=== PATIENT | male | born 1945 | race Caucasian/White ===

== ENCOUNTER 2018-10-10 15:30 | Inpatient (IN) | payer OTHER ==
[~2018-10-10] VITALS: Ht 172.7 cm; Wt 89.7 kg
[2018-10-10 16:24] LABS: HEMATOCRIT 38.3 % (42.0-52.0); HEMOGLOBIN 13.2 gm/dL (14.0-18.0); MCH 33.7 pg (26.0-34.0); MCHC 34.4 g/dL (28.0-37.0); RBC 3.91 mil/uL (4.50-6.00); RDW 14.4 % (10.5-14.5); WBC 8.1 thou/uL (4.0-11.0)
[2018-10-10 16:38] LABS: PROTIME 10.2 Seconds (9.3-11.4)
[2018-10-10 16:43] LABS: ALBUMIN 3.6 g/dL (3.4-5.0); CALCIUM 9.5 mg/dL (8.5-10.1); CREATININE 1.1 mg/dL (0.7-1.3); POTASSIUM 4.6 mmol/L (3.5-5.1); TOTAL BILIRUBIN 0.3 mg/dL (<0.1-1.0); TOTAL PROTEIN 7.7 g/dL (6.4-8.2)
[2018-10-10 16:45] LABS: TROPONIN-I 0.8 ng/mL (<0.06)
[2018-10-10] MEDS ORDERED: METFORMIN HCL500 MG PO (17:24)
[2018-10-10] MEDS ORDERED: COREG6.25 MG PO (17:25)
[2018-10-10] MEDS ORDERED: MAXZIDE-25 MG1 EACH PO (17:26)
[2018-10-10] MEDS ORDERED: ASPIRIN325 PO (17:26)
[2018-10-10] MEDS ORDERED: SIMVASTATIN40 MG PO (17:27)
[2018-10-10] MEDS ORDERED: AVODART0.5 MG PO (17:27)
[2018-10-10] MEDS ORDERED: NITROGLYCERIN0.4 MG SUBLING (17:28)
--- NOTE | 2018-10-10 18:40 | NUR ---
PT A DIRECT ADMIT FROM DR. CHAPIN. ADMISSION HX AND ASSESSMENT COMPLETED. PT ALERT AND ORIENTED. REPORT HAVING SOME CHEST DISCOMFORT. MIHAI ALEXANDER SLICING MACHINE TENDER AWARE. CRITICAL LAB CALLED IN TO MI[facility]. ORDERS RECEIVED. STARTED ON HEPARIN DRIP. WILL CONTINUE TO MONITOR.
[2018-10-10 20:25] VITALS: BP 157/63
[2018-10-11 00:15] VITALS: BP 141/59
[2018-10-11 03:46] VITALS: BP 161/76
--- NOTE | 2018-10-11 05:42 | NUR ---
ASSUMED PT CARE AT 1900. VSS. PT A&0X4. ON HEPARIN DRIP (CHECK HEPARIN FLOWSHEET). PT APTT WAS 62.2 WHEN CHECKED AT 0000 SO NO CHANGE TO CURRENT RATE. PT OCASSIONALLY GOT BRADYCARDIC IN THE HIGHTER 40s ON THE MONITOR DURING THE NIGHT AND ASSYMPTOMATIC. DENIED CHEST PAIN FOR ME DURING THIS SHIFT. PT IS STABLE, HAS BEEN NPO SINCE OOOO IN PREP FOR HEART CATH TODAY. CONSENT NOT SIGED YET; NO ORDERS. PT HAD A GOOD NIGHT, WILL CONTINUE TO MONITOR PER POC.
[2018-10-11 07:05] VITALS: BP 158/68
[2018-10-11 07:16] LABS: CHOLESTEROL 117 mg/dL (<200); HDL CHOLESTEROL 45 mg/dL (>40); LDL CHOLESTEROL 56 mg/dL (<100); TC:HDL 2.6 Ratio (Not establshd); TRIGLYCERIDE 81 mg/dL (<150); VLDL 16 mg/dL (<40)
[2018-10-11 07:25] LABS: TROPONIN-I 1.09 ng/mL (<0.06)
--- NOTE | 2018-10-11 08:32 | EKG ---
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 : 1945 Requested By: Day Gleason Order Number: [id number] MD: Almas Askew Measurements Intervals [place] Rate: 53 P: 24 [place]: 154 QRS: -1 QRSD: 106 T: 34 QT: 449 QTc: 422 Interpretive Statements Sinus bradycardia Otherwise no significant abnormality No previous ECG available for comparison Electronically Signed On 10-11-2018 8:32:19 CDT by Almas Askew [email or web address] ��������������������������������������������� <ELECTRONICALLY SIGNED> ���������������������������������������� By: Almas Askew MD, [facility] ��������������������������������������������� 10/11/18 0832 [id number] Almas Askew MD, FACC /EPI
[2018-10-11] MEDS ORDERED: FIRMAGON80 MG SUBQ (10:53)
--- NOTE | 2018-10-11 13:19 | CATHLAB ---
[address] [place] [address] [facility] [place] [address] INVASIVE PROCEDURE REPORT Name: ALAN AGEE Room #: 210-P 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 A PINNACLE 4FR Sheath #[id number] sheath was inserted into the . Coronary angiography was performed using coronary diagnostic catheters. The right coronary system was accessed and visualized with a JR4 catheter. The left coronary system was accessed and visualized with a JL4 catheter. The left ventricle was accessed and visualized with a angled pigtail catheter. Left ventricular/Aortic Valve gradient assessed via catheter pullback. An aortogram of the ascending aorta was performed. Hemostasis was obtained with manual pressure following sheath removal without any complications. There was no hematoma. Intraoperative Conscious Sedation Sedation start time: 08:16 Case end Time: 9:16 Fentanyl 50 mcg Versed 1 mg Fluoro Time: 19.49 minutes Dose: DAP 72618.00 cGycm2 1592 mGy [facility] [email or web address] [address] INVASIVE PROCEDURE REPORT Name: ANUEL,ALAN Cate Room #: 210-P [facility]#: [id number] ������������� Admission: 10/10/18 ������������� Attend Phys: Jigar Corea MD Discharge: ��� ������������� ��� Date of : 45 Date of Service: 10/11/18 1319 �� Report #: [id number] �������� ��������������������������������������������[id number] Contrast Type and Amount: Omnipaque 240 ml Coronary Angiography The patient's coronary anatomy is left dominant. Diagnostic Cath Left Main There is a severe occlusion in the left main, extending into the left circumflex artery, 95%. LAD There is a subtotal occlusion at the ostium. There is a patent LEE graft with an end-to-side anastomosis to the mid LAD. After the anastomosis, there is both antegrade and retrograde flow filling of the LAD, back to the proximal segment. Diagonal 1 Filled via retrograde flow from the LEE graft to the LAD. Circumflex This is a dominant vessel supplying a left PDA. There is a severe occlusion in the midsegment of the left circumflex artery, 90%. OM1 Occluded at the ostium. There is a patent sequential SVG with a uprj-fk-stmf anastomosis to OM1 and an end-to-side anastomosis to OM 2. OM2 Occluded at the ostium. There is a patent sequential SVG with a yppb-do-dwsr anastomosis to OM1 and an end-to-side anastomosis to OM 2. L HERNAN This is a patent vessel, with a mild stenosis proximally, 30%. Right Coronary This is a small, nondominant vessel, with a total occlusion proximally. Left Ventriculography Left Ventriculography was not performed. An LVEDP was measured and there is no gradient across the outflow tract. An aortogram was performed to assess for grafts. Hemodynamics The aortic pressure is 177/81 mmHg with a mean of 118 mmHg. The left ventricular pressure is 182/11 mmHg with a mean of mmHg. The left ventricular end diastolic pressure is 36 mmHg. PCI Technique Lesion Percutaneous coronary intervention was performed on the LM. The lesion stenosis prior to intervention was 95% with MICKEY 3 flow. A VISTA 6FR XB 3.5 #[id number] Guide Catheter was used to engage the ostium. A Luge Wire .014 x 182CM #[id number] Interventional Guidewire was used to cross the lesion. BALLOON DILATION [facility] [address] [place] [address] INVASIVE PROCEDURE REPORT Name: ALAN AGEE Room #: 210-P [facility].#: [id number] ������������� Admission: 10/10/18 ������������� Attend Phys: Jigar Corea MD Discharge: ��� ������������� ��� Date of : 45 Date of Service: 10/11/18 1319 �� Report #: [id number] �������� ��������������������������������������������[id number] A Balloon catheter TREK RX 2.5 X 12 #[id number] was inserted and inflated up to 18.00atm for 19seconds. Additional Inflation: 12.00atm for 20seconds. Additional Inflation: 14.00atm for 14seconds. STENT DEPLOYMENT A drug-eluting stent XIENCE CYNDY RX 2.75 X 18 #[id number] was inserted and inflated up to 12.00atm for 9seconds. A second Xience Cyndy deployed to LEFT MAIN @ 14ATM for 22SEC Additional inflation @ 18AATM for 13SEC POST STENT DEPLOYMENT BALLOON DILATION A Balloon catheter TREK NC RX 3.0 X 15 #[id number] was inserted and inflated up to 14.00atm for 16seconds. Additional Inflation: 14.00atm for 20seconds. Additional Inflation: 20.00atm for 25seconds. Final angiography reveals 5 % stenosis with MICKEY 3 flow. PCI Technique Lesion 2 Percutaneous coronary intervention was performed on the mid circumflex artery segment. The lesion stenosis prior to intervention was 90% with MICKEY flow. Balloon Dilation A Balloon catheter TREK RX 2.5 X 12 #[id number] was inserted and inflated up to 14atm for 8seconds. Stent Deployment A drug-eluting stent XIENCE CYNDY RX 2.75 X 18 #[id number] was inserted and inflated up to 14atm for 12seconds. Post Stent Deployment Balloon Dilation A Balloon catheter TREK NC RX 3.0 X 15 #[id number] was inserted and inflated up to 14atm for 8seconds. Final angiography reveals 0 % stenosis with MICKEY 3 flow. Conclusion 1. Successful insertion of a drug-eluting stent into the left main artery. 2. Successful insertion of a drug-eluting stent into the mid segment of a dominant left circumflex artery, supplying blood to the left PDA. 3. Patent LEE to the LAD. 4. Patent sequential SVG to OM1 and OM 2. [facility] [address] [place] [address] INVASIVE PROCEDURE REPORT Name: ALAN AGEE Room #: 210-P [facility] IN M.R.#: [id number] ������������� Admission: 10/10/18 ������������� Attend Phys: Jigar Corea MD Discharge: ��� ������������� ��� Date of : 45 Date of Service: 10/11/18 1319 �� Report #: [id number] �������� ��������������������������������������������[id number] 5. Recommend dual antiplatelet therapy and aggressive risk factor management. ��������������������������������������������� <ELECTRONICALLY SIGNED> ���������������������������������������� By: Jigar Corea MD ��������������������������������������������� 10/11/189 18 18 Jigar Corea MD /INF
[2018-10-11 16:00] VITALS: BP 173/76
--- NOTE | 2018-10-11 17:37 | NUR ---
ALERT AND ORIENTED AND HAS DENIES PAIN, TO BUSINESS CASE ANALYST EARLIER TODAY AND 2STENTS PLACED. ON BEDREST TILL 1830, TOLERATING DIET W/O NAUSEA. VOIDING PER URINAL WHILE ON BEDREST. RIGHT GROIN SITE CLEAN AND DRY AND NO HEMATOMA, PULSES INTACT. WILL CONTINUE TO MONITOR.
[2018-10-11 20:00] VITALS: BP 106/57
[2018-10-12] VITALS: BP 165/71
[2018-10-12 03:46] LABS: HEMATOCRIT 35.7 % (42.0-52.0); HEMOGLOBIN 12.5 gm/dL (14.0-18.0); MCV 97.2 fL (80.0-100.0); RBC 3.68 mil/uL (4.50-6.00); RDW 14.2 % (10.5-14.5); WBC 6.5 thou/uL (4.0-11.0)
[2018-10-12 03:50] LABS: ALBUMIN 3.1 g/dL (3.4-5.0); CALCIUM 8.6 mg/dL (8.5-10.1); POTASSIUM 4.1 mmol/L (3.5-5.1); TOTAL BILIRUBIN 0.3 mg/dL (<0.1-1.0); TOTAL PROTEIN 6.8 g/dL (6.4-8.2)
[2018-10-12 05:00] VITALS: BP 162/78
--- NOTE | 2018-10-12 05:17 | NUR ---
ASSUMED PT CARE 1900. PT IS ALERT AND ORIENTED WITH NO SIGN OF DISTRESS NOTED. ASSESSMENT CHARTED AND COMPLETED. GROIN SITE LOOKS INTACT, CLEAN AND DRY. VITAL SIGNS STABLE, SB ON THE MONITOR. SCHEDULED MEDS ADMINISTERED TO PT, NO SIGN OF DISTRESS NOTED, DENIES ANY FURTHER NEEDS AT THIS TIME.
[2018-10-12 07:40] VITALS: BP 155/76
--- NOTE | 2018-10-12 07:52 | EKG ---
[address] [address] ELECTROCARDIOGRAM REPORT Name: ALAN AGEE Room #: 210-P ADM IN M.R.#: [id number] ������������������ Admission: 10/10/18 ������������������ Attend Phys: Jigar Corea MD Discharge: ������������������ Date of : 45 Report #: [id number] ����������������������������������������������������������������� [id number] THIS REPORT FOR: //name// [facility] Test Date: 2018-10-11 Test Time: 12:53:07 Pat Name: ALAN AGEE Department: Room: 210 P Gender: M Manager Demand: MIREILLE : 1945 Requested By: Jigar Corea Order Number: [id number] MD: Almas Askew Measurements Intervals [place] Rate: 48 P: 177 [place]: 95 QRS: -14 QRSD: 145 T: 10 QT: 509 QTc: 455 Interpretive Statements Sinus or ectopic atrial bradycardia Short OH interval Right bundle branch block Compared to ECG 10/11/2018 07:56:14 Bradycardia, nonsinus now present Short OH interval now present Right bundle-branch block now present Electronically Signed On 10-12-2018 7:51:59 CDT by Almas Askew [email or web address] ��������������������������������������������� <ELECTRONICALLY SIGNED> ���������������������������������������� By: Almas Askew MD, FACC ��������������������������������������������� 10/12/18 0751 1253 [id number] Almas Askew MD, [facility] /EPI
--- NOTE | 2018-10-12 08:36 | EKG ---
[address] [address] ELECTROCARDIOGRAM REPORT Name: ALAN AGEE Room #: 210-P ADM IN M.R.#: [id number] ������������������ Admission: 10/10/18 ������������������ Attend Phys: Jigar Corea MD Discharge: ������������������ Date of : 45 Report #: [id number] ����������������������������������������������������������������� [id number] THIS REPORT FOR: //name// [facility] Test Date: 2018-10-12 Test Time: 06:59:53 Pat Name: ALAN AGEE Department: Room: 210 P Gender: M Manager Services: TRAMAINE : 1945 Requested By: Jigar Corea Order Number: [id number] MD: Almas Askew Measurements Intervals [place] Rate: 55 P: 20 [place]: 155 QRS: -6 QRSD: 87 T: 32 QT: 459 QTc: 439 Interpretive Statements Sinus bradycardia Compared to ECG 10/11/2018 07:56:14 Right bundle-branch block no longer present Electronically Signed On 10-12-2018 8:35:50 CDT by Almas Askew [email or web address] ��������������������������������������������� <ELECTRONICALLY SIGNED> ���������������������������������������� By: Almas Askew MD, [facility] ��������������������������������������������� 10/12/18 0835 D: 0659 Almas Askew MD, FACC /EPI
[2018-10-12] MEDS ORDERED: EFFIENT10 MG PO (09:05)
[2018-10-12] MEDS ORDERED: LIPITOR40 MG PO (09:05)
[2018-10-12] MEDS ORDERED: PRINIVIL5 MG PO (09:05)
[2018-10-12 09:39] VITALS: BP 155/76
[2018-10-12 09:58] VITALS: BP 155/76
--- NOTE | 2018-10-12 10:43 | NUR ---
ASSUMED CARE OF PATIENT AT 0700. ASSESSMENT COMPLETED. PATIENT IS ANXIOUS TO BE DISCHARGED AND GO HOME. PATIENT HAS A RIGHT GROIN SITE WHICH IS WITHOUT BLEEDING, HEMATOMA AND EDEMA. DENIES ANY TENDERNESS. PATIENT'S MEDS WERE VERIFIED BY PB ALEXANDER NP AND DISCHARGE ORDERS COMPLETED. PATIENT GIVEN HAND WRITTEN SCRIPTS WITH INFORMATION SHEETS ON EACH. IV AND TELE REMOVED. DISCHARGE INFORMATION AND PAPERWORK REVIEWED AND SIGNED. PATIENT STATES THAT HE UNDERSTANDS HIS RESTRICTIONS AND WILL CALL WITH ANY QUESTIONS OR CONCERNS.
--- NOTE | 2018-10-13 08:12 | D ---
[facility] [place] [address] DISCHARGE SUMMARY Name: ALAN AGEE Room #: 210-P [facility] IN M.R.#: [id number] Admission: 10/10/18 ������������������ Attend Phys: Jigar Corea MD Discharge: 10/12/18 ������������������ Date of : 45 Report #: [id number] THIS REPORT FOR: //name// CC: Jigar Holcomb DATE OF SERVICE: 10/12/2018 FINAL DIAGNOSES: 1. Non-ST elevation myocardial infarction, status post coronary intervention. 2. Remote history of coronary artery bypass graft in 1999. 3. Hypertension. 4. Hypercholesterolemia. 5. Diabetes mellitus. HISTORY AND HOSPITAL COURSE: Please see the original H and P for full details. The patient had been stable until several days ago, presenting with chest pains and shortness of breath with exertion. This progressed to chest pain at night, waking him up from sleep. He took multiple nitroglycerins. The initial troponin level was positive. The ECG did not show any acute ST segment changes. The patient was started on IV heparin. Please see the cardiac catheterization report for full details. There is a patent LEE graft to the LAD. There is a patent sequential SVG to the first obtuse marginal artery and second obtuse marginal artery. The left circumflex artery is dominant, supplying the left PDA. There is obstructive flow involving the left PDA due to lesions in the left main and mid left circumflex arteries. Angioplasty was performed with placement of 2 drug-eluting stents. He has remained stable overnight. He will be discharged on aspirin, Lipitor 40 mg, Coreg 6.25 mg twice a day, Effient 10 mg and resumption of metformin. He is given followup instructions. ��������������������������������������������� <ELECTRONICALLY SIGNED> ���������������������������������������� By: Jigar Corea MD ��������������������������������������������� 10/13/1812 Jigar Corea MD /nt
== END 2018-10-12 10:30 | disposition home or self-care (01) | DRG 247 ==
LOC: 2N 15:30 → ENTRNSPT 10-12 10:01 → EDTRNSPTSTS 10-12 10:04 → 2N 10-12 10:30
PROVIDERS: Nurse Practitioner; ADMIT Internal Medicine Cardiovascular Disease
PROC: B2181ZZ Fluoroscopy of Left Internal Mammary Bypass Graft using Low Osmolar Contrast (ICD-10-PCS; principal; 2018-10-11)
PROC: B4101ZZ Fluoroscopy of Abdominal Aorta using Low Osmolar Contrast (ICD-10-PCS; principal; 2018-10-11)
PROC: B2111ZZ Fluoroscopy of Multiple Coronary Arteries using Low Osmolar Contrast (ICD-10-PCS; principal; 2018-10-11)
PROC: 4A023N7 Measurement of Cardiac Sampling and Pressure, Left Heart, Percutaneous Approach (ICD-10-PCS; principal; 2018-10-11)
PROC: 027135Z Dilation of Coronary Artery, Two Arteries with Two Drug-eluting Intraluminal Devices, Percutaneous Approach (ICD-10-PCS; principal; 2018-10-11)
PROC: B2131ZZ Fluoroscopy of Multiple Coronary Artery Bypass Grafts using Low Osmolar Contrast (ICD-10-PCS; principal; 2018-10-11)
DX: I21.4 Non-ST elevation (NSTEMI) myocardial infarction (principal); Z95.1 Presence of aortocoronary bypass graft; I10 Essential (primary) hypertension; E78.00 Pure hypercholesterolemia, unspecified; E11.9 Type 2 diabetes mellitus without complications; Z95.5 Presence of coronary angioplasty implant and graft; Z79.82 Long term (current) use of aspirin; Z79.899 Other long term (current) drug therapy
CPT/HCPCS: 10081; 10797

== ENCOUNTER → 2019-07-17 | Outpatient (CLI) | payer OTHER ==
[~2019-07-17] MED LIST: ASPIRIN325 PO; AVODART0.5 MG PO; COREG6.25 MG PO; EFFIENT10 MG PO; FIRMAGON80 MG SUBQ; LIPITOR40 MG PO; MAXZIDE-25 MG1 EACH PO; METFORMIN HCL500 MG PO; NITROGLYCERIN0.4 MG SUBLING; PRINIVIL5 MG PO; SIMVASTATIN40 MG PO
== END ==
LOC: RAD 13:42
DX: J90 Pleural effusion, not elsewhere classified (principal); J98.11 Atelectasis

== ENCOUNTER → 2019-07-17 | Outpatient (CLI) | payer OTHER | LOC: SJCVCIMAG 12:05 | DX: I08.8 Other rheumatic multiple valve diseases (principal); R94.31 Abnormal electrocardiogram [ECG] [EKG]; I31.3 Pericardial effusion (noninflammatory); I27.20 Pulmonary hypertension, unspecified; I42.9 Cardiomyopathy, unspecified; I25.10 Atherosclerotic heart disease of native coronary artery without angina pectoris; I10 Essential (primary) hypertension; E78.00 Pure hypercholesterolemia, unspecified; J90 Pleural effusion, not elsewhere classified ==